=== PATIENT | female | born 1965 | race Caucasian/White ===

== ENCOUNTER 2020-12-19 11:59 | Outpatient (REF) | payer OTHER, SELFPAY ==
[2020-12-19 13:59] LABS: UPreg QC Valid YES; Urine Pregnancy NEGATIVE (NEGATIVE)
[2020-12-19 14:16] LABS: Alanine Aminotransferase 12 U/L (0-31); Albumin Level 4.3 g/dL (3.5-5.0); Alkaline Phosphatase 55 U/L (39-117); Anion Gap 12 (12-20); Aspartate Amino Transferase 19 U/L (5-31); Bilirubin Total 0.4 mg/dL (0.0-1.0); Blood Urea Nitrogen 20 mg/dL (9-16); Calcium 9.3 mg/dL (8.4-10.2); Carbon Dioxide 24 mmol/L (22-29); Chloride 104 mmol/L (96-108); Estimated Glomerular Filt Rate > 60; Glucose Random 89 mg/dL (60-115); Potassium 4.3 mmol/L (3.3-5.1); Sodium 136 mmol/L (135-145); Total Protein 7.2 g/dL (6.5-8.0)
== END 2020-12-19 12:00 | disposition home or self-care (01) ==
LOC: HO.LAB 11:59
PROVIDERS: PCP Internal Medicine; Visit Provider Internal Medicine Endocrinology, Diabetes & Metabolism
DX: E66.3 Overweight (principal); F41.9 Anxiety disorder, unspecified; Z78.0 Asymptomatic menopausal state; Z32.00 Encounter for pregnancy test, result unknown
CPT/HCPCS: 36415; 80053; 81025

== ENCOUNTER 2021-03-21 12:13 | Outpatient (REF) | payer OTHER, SELFPAY ==
[2021-03-21 13:40] LABS: Alanine Aminotransferase 15 U/L (0-31); Albumin Level 4.2 g/dL (3.5-5.0); Alkaline Phosphatase 58 U/L (39-117); Anion Gap 12 (12-20); Aspartate Amino Transferase 18 U/L (5-31); Bilirubin Total < 0.2 mg/dL (0.0-1.0); Blood Urea Nitrogen 23 mg/dL (9-16); Calcium 9.1 mg/dL (8.4-10.2); Carbon Dioxide 22 mmol/L (22-29); Chloride 106 mmol/L (96-108); Estimated Glomerular Filt Rate > 60; Glucose Random 96 mg/dL (60-115); Potassium 4.9 mmol/L (3.3-5.1); Sodium 135 mmol/L (135-145); Total Protein 7.3 g/dL (6.5-8.0)
== END 2021-03-21 12:14 | disposition home or self-care (01) ==
LOC: HO.LAB 12:13
PROVIDERS: PCP Internal Medicine; Visit Provider Internal Medicine Endocrinology, Diabetes & Metabolism
DX: E66.3 Overweight (principal); Z79.899 Other long term (current) drug therapy; Z78.0 Asymptomatic menopausal state; Z68.25 Body mass index [BMI] 25.0-25.9, adult
CPT/HCPCS: 36415; 80053

== ENCOUNTER 2021-07-17 08:12 | Outpatient (REF) | payer OTHER, SELFPAY ==
--- NOTE | ~2021-07-17 | MM_ITS ---
EXAMINATION: BONE DENSITOMETRY CLINICAL INDICATION: Osteopenia. COMPARISON: This is the patient's baseline examination. TECHNIQUE: Using a [employer] DXA System (software version: 13.1) manufactured by [employer], dual-energy x-ray absorptiometry was performed of the lumbar spine and left hip. The images are of good technical quality. Based on ISCD (International Society for Clinical Densitometry) standards of reporting, Z-scores instead of T-scores are reported in this premenopausal woman. Summary results are attached. FINDINGS: AP SPINE L1-L4: BMD 1.316 g/cm2, T-score 1.1, Z-score 2.1, Z-score within expected range for age. LEFT FEMUR, NECK: BMD 0.998 g/cm2, T-score -0.3, Z-score 0.8, Z-score within expected range for age. LEFT FEMUR, TOTAL: BMD 1.048 g/cm2, T-score 0.3, Z-score 1.1, Z-score within expected range for age. IDENTIFIED RISK FACTORS: None listed. HISTORY OF FRACTURE: None listed. MEDICATIONS: Vitamin D. MM/XR DEXA axial skeleton IMPRESSION: 1. DIAGNOSIS: Based on the lowest Z-score value of 0.8 in the femoral neck, the patient's bone density is within the expected range for age. 2. 10-YEAR FRACTURE RISK PREDICTION, FRAX: Major osteoporotic fracture (clinical spine, forearm, hip or shoulder) 5.8%. Hip fracture 0.2%. 3. Treatment Recommendations: NOF guidelines recommend consideration for treatment in postmenopausal women and men age 50 and older presenting with the following: -A hip or vertebral (clinical or morphometric) fracture. -T-score less than or equal to -2.5 at the femoral neck or spine after appropriate evaluation to exclude secondary causes. -Low bone mass at the hip or spine and a 10-year fracture probability by FRAX of greater than or equal to 3% for hip fracture or greater than or equal to 20% for major osteoporotic fracture based on the [place] adapted WHO algorithm. 4. Other Recommendations: All treatment decisions require clinical judgment and consideration of individual patient factors, including patient preferences, comorbidities, previous drug use, risk factors not captured in the FRAX model (e.g. frailty, falls, vitamin D deficiency, increased bone turnover, interval significant decline in bone density) and possible under or overestimation of fracture risk by FRAX. FUTURE SCAN RECOMMENDATION: People with diagnosed cases of osteoporosis or at high risk for fracture should have regular bone mineral density tests. For patients eligible for Medicare, routine testing is allowed once every 2 years. The testing frequency can be increased to one year for patients who have rapidly progressing disease, those who are receiving or discontinuing medical therapy to restore bone mass, or have additional risk factors.
== END 2021-07-17 08:13 | disposition home or self-care (01) ==
LOC: HO.MAMMO 08:12
PROVIDERS: PCP Internal Medicine; Visit Provider Internal Medicine
DX: Z13.820 Encounter for screening for osteoporosis (principal); M85.80 Other specified disorders of bone density and structure, unspecified site; Z79.899 Other long term (current) drug therapy
CPT/HCPCS: 77080

== ENCOUNTER 2021-07-25 12:16 | Outpatient (REF) | payer OTHER, SELFPAY ==
[2021-07-25 13:55] LABS: Alanine Aminotransferase 44 U/L (0-31); Albumin Level 4.5 g/dL (3.5-5.0); Alkaline Phosphatase 63 U/L (39-117); Anion Gap 15 (12-20); Aspartate Amino Transferase 46 U/L (5-31); Bilirubin Total 0.3 mg/dL (0.0-1.0); Blood Urea Nitrogen 19 mg/dL (9-16); Calcium 9.5 mg/dL (8.4-10.2); Carbon Dioxide 22 mmol/L (22-29); Chloride 105 mmol/L (96-108); Estimated Glomerular Filt Rate > 60; Glucose Random 88 mg/dL (60-115); Potassium 5.2 mmol/L (3.3-5.1); Sodium 137 mmol/L (135-145); Total Protein 7.5 g/dL (6.5-8.0)
== END 2021-07-25 12:17 | disposition home or self-care (01) ==
LOC: HO.LAB 12:16
PROVIDERS: PCP Internal Medicine; Visit Provider Internal Medicine
DX: E66.3 Overweight (principal); Z79.899 Other long term (current) drug therapy; Z87.891 Personal history of nicotine dependence
CPT/HCPCS: 36415; 80053

== ENCOUNTER 2021-11-21 13:33 | Outpatient (REF) | payer OTHER, SELFPAY ==
[2021-11-21 14:40] LABS: Alanine Aminotransferase 37 U/L (0-31); Albumin Level 4.5 g/dL (3.5-5.0); Alkaline Phosphatase 80 U/L (39-117); Anion Gap 15 (12-20); Aspartate Amino Transferase 36 U/L (5-31); Bilirubin Total 0.2 mg/dL (0.0-1.0); Blood Urea Nitrogen 17 mg/dL (9-16); Calcium 9.9 mg/dL (8.4-10.2); Carbon Dioxide 25 mmol/L (22-29); Chloride 101 mmol/L (96-108); Estimated Glomerular Filt Rate > 60; Glucose Random 98 mg/dL (60-115); Potassium 4.6 mmol/L (3.3-5.1); Sodium 136 mmol/L (135-145); Total Protein 7.9 g/dL (6.5-8.0)
== END 2021-11-21 13:34 | disposition home or self-care (01) ==
LOC: HO.LAB 13:33
PROVIDERS: PCP Internal Medicine; Visit Provider Internal Medicine
DX: E66.3 Overweight (principal)
CPT/HCPCS: 36415; 80053

== ENCOUNTER → 2021-12-30 14:22 | Outpatient (BNVA) | payer OTHER, SELFPAY | PROVIDERS: PCP Internal Medicine; Visit Provider Internal Medicine | DX: E66.3 Overweight (principal) | CPT/HCPCS: 99212 ==

== ENCOUNTER 2023-05-14 17:36 | Inpatient (IN) | payer OTHER, SELFPAY ==
--- NOTE | ~2023-05-14 | CT_ITS ---
EXAMINATION: CT ABDOMEN AND PELVIS WITHOUT CONTRAST CLINICAL INFORMATION: Left flank pain COMPARISON: None available. TECHNIQUE: Multidetector volumetric imaging was performed from the superior aspect of the liver through the pubic symphysis. Sagittal and coronal reformatted images were obtained on the technologist's workstation. This CT examination was performed using dose optimization techniques as appropriate, variously including the following: *Automated exposure control *Adjustment of mA and/or kV according to patient size (this includes techniques or standardized protocols for targeted exams where dose is matched to indication/reason for exam; i.e. extremities or head) *Use of iterative reconstruction technique DLP: 447 mGy-cm FINDINGS: LUNG BASES: The visualized lung bases are unremarkable. LIVER, GALLBLADDER, AND BILIARY TREE: The liver is normal in size, shape, and attenuation. No focal hepatic lesion or biliary ductal dilatation is present. The gallbladder is unremarkable with no evidence of radiopaque gallstones, gallbladder wall thickening, or obvious pericholecystic inflammatory changes. PANCREAS: Unremarkable. SPLEEN: Unremarkable. ADRENAL GLANDS: Unremarkable. KIDNEYS AND URETERS: The kidneys are normal in size, shape, and attenuation. No hydronephrosis, hydroureter, or calculi seen. No perinephric stranding. BLADDER: Unremarkable. GASTROINTESTINAL TRACT: The appendix is edematous and thickened to a diameter 1 cm with surrounding edema in the mesentery. This consistent with appendicitis in appropriate clinical setting. There is fluid in the cul-de-sac. No focal abscess. There is no evidence for perforation. No bowel obstruction. No diverticula. Small to moderate volume of scattered stool in the colon. Small bowel loops are normal. Stomach is normal. There is a small hiatal hernia. ABDOMINAL WALL: Small fat-containing umbilical hernia LYMPH NODES: Normal. VASCULAR: Unremarkable. PELVIC VISCERA: Unremarkable. OSSEOUS STRUCTURES: Multilevel degenerative spondylosis spine. CT/CT abdomen pelvis wo IV con IMPRESSION: Abnormal dilated edematous appendix with surrounding edema in the mesentery and fluid in the cul-de-sac. Findings suspicious for appendicitis. Fleischner guidelines were followed.
[2023-05-14 17:50] VITALS: BP 145/80; PULSE 84; O2SAT 98
--- NOTE | 2023-05-14 17:51 | ED.GENADULT ---
HPI - General Adult General Chief complaint: Abdominal Pain Stated complaint: abdominal pain Related Data Home Medications Medication Instructions Recorded Confirmed bupropion HCl 150 mg 24 hr tablet, 450 mg PO DAILY 03/21/21 12/30/21 extended release cholecalciferol (vitamin D3) 50 50 mcg PO DAILY 03/21/21 12/30/21 mcg (2,000 unit) tablet diclofenac sodium 1 % topical gel 1 - 2 g topical TID PRN pain 03/21/21 12/30/21 lorazepam 1 mg tablet 1 mg PO QID PRN 03/21/21 12/30/21 simvastatin 10 mg tablet 10 mg PO BEDTIME 03/21/21 12/30/21 zolpidem 10 mg tablet 10 mg PO BEDTIME PRN 03/21/21 12/30/21 Previous Rx's Medication Instructions Recorded phentermine 3.75 mg-topiramate ER 1 cap PO DAILY 14 days #14 caps 12/30/21 23 mg capsule,ext.release 24hr mphas Allergies Allergy/AdvReac Type Severity Reaction Status Date / Time No Known Allergies Allergy Verified 12/30/21 15:00 [facility] Past Medical History Medical History Overweight (BMI 25.0-29.9) Surgical History History of ear surgery Hx of myomectomy Family History Family History Father Heart disease Mother Lung cancer Social History Social History Alcohol intake: current Alcohol intake frequency: does not drink Patient Tobacco Use Status: Former Tobacco user Tobacco use type: Cigarette Physical Exam ED Vital Signs: Vital Signs - 24 hr 05/14/23 17:53 Temperature 97.7 F Pulse Rate 87 Respiratory Rate 18 Blood Pressure 130/84 Pulse Oximetry 95 Oxygen Delivery Method Room Air BMI result Body Mass Index 24.9 Course Course Course Narrative: This is an RME: Additional HPI, ROS, PE not included below will be deferred to primary provider. This is a 58-year-old female presenting to emergency department via EMS for evaluation of severe abdominal pain and nausea x 2 hours. Patient reports that she had chicken last night and believes that the chicken is making her sick. She is endorsing back pain. Positive left CVA tenderness on exam. Vital signs stable. Patient appears uncomfortable. Abdomen is diffusely tender examination. Plan: Labs, UA, EKG. Discharge Plan Discharge Prescriptions: No Action bupropion HCl 150 mg tablet extended release 24 hr 450 mg PO DAILY simvastatin 10 mg tablet 10 mg PO BEDTIME zolpidem 10 mg tablet 10 mg PO BEDTIME PRN lorazepam 1 mg tablet 1 mg PO QID PRN diclofenac sodium 1 % gel 1 - 2 g topical TID PRN (Reason: pain) cholecalciferol (vitamin D3) 50 mcg (2,000 unit) tablet 50 mcg PO DAILY phentermine-topiramate 3.75-23 mg capsule, ER multiphase 24 hr 1 cap PO DAILY 14 Days Qty: 14 0RF
[2023-05-14 17:53] VITALS: BP 130/84; PULSE 87; RESP 18; TEMP 36.5; O2SAT 95; BMI 24.9
--- NOTE | 2023-05-14 18:00 | ECG_ITS ---
Test Reason : epigastric pain Blood Pressure : / mmHG Vent. Rate : 086 BPM Atrial Rate : 086 BPM P-R Int : 172 ms QRS Dur : 068 ms QT Int : 376 ms P-R-T Axes : 075 -75 065 degrees QTc Int : 449 ms Normal sinus rhythm Left axis deviation Low voltage QRS Inferior infarct , age undetermined Possible Anterolateral infarct , age undetermined Abnormal ECG When compared with ECG of 29-MAY-2015 13:43, Vent. rate has increased BY 29 BPM QRS axis Shifted left Inferior infarct is now Present Referred By: Anu Polk Electronically Signed By:Olu Bernabe
[2023-05-14 18:44] LABS: MANUAL DIFF FLAG NO
[2023-05-14 18:45] LABS: Basophils Percent Auto 0.3 % (0-2); Eosinophils Absolute Auto 0.1 X10*3/uL (0.0-0.4); Eosinophils Percent Auto 0.5 % (0-4); Hematocrit 39.6 % (37.0-47.0); Hemoglobin 12.9 g/dl (12.0-16.0); Imm Gran Abs Auto 0.05 X10*3/uL (0.00-0.03); Imm Gran Pct Auto 0.4 % (0.0-0.4); Lymphocytes Absolute Auto 2.2 X10*3/uL (1.2-4.9); Mean Corpuscular HGB Conc 32.6 g/dl (31.0-35.0); Mean Corpuscular Hemoglobin 32.5 pg (27.0-33.0); Mean Corpuscular Volume 99.7 fL (80.0-98.0); Mean Platelet Volume 9.6 fL (9.4-12.3); Monocytes Absolute Auto 0.4 X10*3/uL (0.1-1.2); Monocytes Percent Auto 3.1 % (2-11); Neutrophils Absolute Auto 10.1 x10*3/uL (2.0-8.3); Neutrophils Percent Auto 78.7 % (45-73); Platelet Count 387 X10*3/uL (160-400); Red Blood Count 3.97 X10*6/uL (4.20-5.50); Red Cell Distribution Width 14.6 % (11.0-16.0); White Blood Count 12.8 X10*3/uL (4.8-10.8)
[2023-05-14 19:01] LABS: Alanine Aminotransferase 24 U/L (0-31); Albumin Level 4.3 g/dL (3.5-5.0); Alkaline Phosphatase 75 U/L (39-117); Anion Gap 15 (12-20); Aspartate Amino Transferase 26 U/L (5-31); Bilirubin Direct 0.1 mg/dL (0.0-0.5); Bilirubin Total 0.3 mg/dL (0.0-1.0); Blood Urea Nitrogen 19 mg/dL (9-16); Calcium 9.9 mg/dL (8.4-10.2); Carbon Dioxide 22 mmol/L (22-29); Chloride 103 mmol/L (96-108); Creatinine Clr Calc Pharmacy 67.2; Estimated Glomerular Filt Rate > 60; Glucose Random 129 mg/dL (60-115); Potassium 4.3 mmol/L (3.3-5.1); Sodium 136 mmol/L (135-145); Total Protein 7.5 g/dL (6.5-8.0)
[2023-05-14 19:05] LABS: Appearance Urine Cloudy; Color Urine Yellow; Glucose Urine UA Negative (Negative); Leukocyte Esterase Urine Negative (Negative); Nitrite Urine Negative (Negative); Specific Gravity - Urine >= 1.030 (1.005-1.025); Urine Blood Negative (Negative); Urine Ketones 15 mg/dL (Negative); Urine Protein Trace mg/dL (Neg-Trace)
[2023-05-14 19:15] LABS: Troponin-I High Sensitivity < 2.7 ng/L (<3.5-17.0)
--- NOTE | 2023-05-14 19:29 | ED_ITS ---
HPI - Abdominal Pain General Chief Complaint: Abdominal Pain Stated Complaint: abdominal pain Time Seen by Provider: 05/14/23 19:10 History of Present Illness HPI narrative: Patient is a 58-year-old female presents today with having abdominal pain is been ongoing since this morning. Is worse over the lower abdomen. Associated with nausea. Worsen with movement. Patient from home. No fever no chills. Vomiting mostly food. No previous history of abdominal surgery in the past for no allergies. Not on blood thinners. Related Data Home Medications Medication Instructions Recorded Confirmed bupropion HCl 150 mg 24 hr tablet, 450 mg PO DAILY 03/21/21 12/30/21 extended release cholecalciferol (vitamin D3) 50 50 mcg PO DAILY 03/21/21 12/30/21 mcg (2,000 unit) tablet diclofenac sodium 1 % topical gel 1 - 2 g topical TID PRN pain 03/21/21 12/30/21 lorazepam 1 mg tablet 1 mg PO QID PRN 03/21/21 12/30/21 simvastatin 10 mg tablet 10 mg PO BEDTIME 03/21/21 12/30/21 zolpidem 10 mg tablet 10 mg PO BEDTIME PRN 03/21/21 12/30/21 Previous Rx's Medication Instructions Recorded phentermine 3.75 mg-topiramate ER 1 cap PO DAILY 14 days #14 caps 12/30/21 23 mg capsule,ext.release 24hr mphas Allergies Allergy/AdvReac Type Severity Reaction Status Date / Time No Known Allergies Allergy Verified 12/30/21 15:00 Review of Systems Review of Systems Positive abdominal pain Nausea vomiting Yes all other systems are reviewed and are negative PMFSH Past Medical History Medical History Overweight (BMI 25.0-29.9) Surgical History History of ear surgery Hx of myomectomy Family History Family History Father Heart disease Mother Lung cancer Social History Social History Alcohol intake: current Alcohol intake frequency: does not drink Patient Tobacco Use Status: Former Tobacco user Tobacco use type: Cigarette Advance Directives: No Advance Directives Information Provided: Yes Physical Exam ED Vital Signs: Vital Signs - 24 hr 05/14/23 17:53 Temperature 97.7 F Pulse Rate 87 Respiratory Rate 18 Blood Pressure 130/84 Pulse Oximetry 95 Oxygen Delivery Method Room Air BMI result Body Mass Index 24.9 Appearance: Alert. Oriented X3. No acute distress. Eyes: Pupils equal, round and reactive to light. ENT: Pharynx normal. Neck: Normal inspection. Neck supple. No lymph nodes noted. No crepitus CVS: Normal heart rate and rhythm. Pulses normal. Normal S1 and S2 Respiratory: No respiratory distress. Breath sounds normal. No Wheezing. No rales Abdomen: Positive right lower quadrant tenderness No rigidity. No distention. good BS x4 Skin: Skin warm and dry. Normal skin color. Normal skin turgor. Extremities: No lower extremity edema. Neurovascular intact to all extremities. No Lacerations. No Rash Neuro: Oriented X 3. No motor deficit. No sensory deficit. Moving all extermities. No slurred speech Medical Decision Making Medical Decision Making [facility] Narrative: Patient had abdominal pain. White count was 12. CT scan of the abdomen pelvis consistent with appendicitis. Antibiotic was started. Pain medication given. Zofran for nausea. IV fluids. Patient's case discussed with Dr. Boone from surgery. Will take patient to the OR. Differential Diagnosis Differential Diagnoses: The differential diagnosis associated with the presentation includes Appendicitis, kidney stone, obstruction, abscess, perforation Admission/Observation Consideration of admission/observation: Escalation of care including admission/observation considered Patient to be admitted to the OR Consult Healthcare Provider Surgery Dr. Boone Lab Data [facility] Lab Attestation statement: I reviewed the patient's lab results. 05/14/23 18:35 05/14/23 18:35 Labs: Lab Results 05/14/23 05/14/23 05/14/23 Range/Units 18:35 18:35 18:35 WBC 12.8 H (4.8-10.8) X10*3/uL RBC 3.97 L (4.20-5.50) X10*6/uL Hgb 12.9 (12.0-16.0) g/dl Hct 39.6 (37.0-47.0) % MCV 99.7 H (80.0-98.0) fL MCH 32.5 (27.0-33.0) pg MCHC 32.6 (31.0-35.0) g/dl RDW 14.6 (11.0-16.0) % Plt Count 387 (160-400) X10*3/uL MPV 9.6 (9.4-12.3) fL Immature Gran % (Auto) 0.4 (0.0-0.4) % Neut % (Auto) 78.7 H (45-73) % Lymph % (Auto) 17.0 L (20-40) % [place] % (Auto) 3.1 (2-11) % Eos % (Auto) 0.5 (0-4) % Baso % (Auto) 0.3 (0-2) % Lymph # (Auto) 2.2 (1.2-4.9) X10*3/uL [place] # (Auto) 0.4 (0.1-1.2) X10*3/uL Eos # (Auto) 0.1 (0.0-0.4) X10*3/uL Baso # (Auto) 0.0 (0.0-0.2) X10*3/uL Abs Immat Gran (auto) 0.05 H (0.00-0.03) X10*3/uL Absolute Neuts (auto) 10.1 H (2.0-8.3) x10*3/uL Absolute Nucleated RBC 0.000 (0.0-0.012) X10*3/uL Nucleated RBC % (auto) 0.0 (0.0-0.2) /100WBC Sodium 136 (135-145) mmol/L Potassium 4.3 (3.3-5.1) mmol/L Chloride 103 (96-108) mmol/L Carbon Dioxide 22 (22-29) mmol/L Anion Gap 15 (12-20) BUN 19 H (9-16) mg/dL Creatinine 0.84 (0.5-1.4) mg/dL Estim Creat Clear Calc 67.2 Estimated GFR > 60 Random Glucose 129 H (60-115) mg/dL Calcium 9.9 (8.4-10.2) mg/dL Total Bilirubin 0.3 (0.0-1.0) mg/dL Direct Bilirubin 0.1 (0.0-0.5) mg/dL AST 26 (5-31) U/L ALT 24 (0-31) U/L Alkaline Phosphatase 75 (39-117) U/L Troponin I High Sens < 2.7 (<3.5-17.0) ng/L Total Protein 7.5 (6.5-8.0) g/dL Albumin 4.3 (3.5-5.0) g/dL Urine Color Urine Appearance Urine pH (5.0-9.0) Ur Specific [place] (1.005-1.025) Urine Protein (Neg-Trace) mg/dL Urine Glucose (UA) (Negative) mg/dL Urine Ketones (Negative) mg/dL Urine Blood (Negative) Urine Nitrite (Negative) Ur Leukocyte Esterase (Negative) 05/14/23 Range/Units 18:35 WBC (4.8-10.8) X10*3/uL RBC (4.20-5.50) X10*6/uL Hgb (12.0-16.0) g/dl Hct (37.0-47.0) % MCV (80.0-98.0) fL MCH (27.0-33.0) pg MCHC (31.0-35.0) g/dl RDW (11.0-16.0) % Plt Count (160-400) X10*3/uL MPV (9.4-12.3) fL Immature Gran % (Auto) (0.0-0.4) % Neut % (Auto) (45-73) % Lymph % (Auto) (20-40) % [place] % (Auto) (2-11) % Eos % (Auto) (0-4) % Baso % (Auto) (0-2) % Lymph # (Auto) (1.2-4.9) X10*3/uL [place] # (Auto) (0.1-1.2) X10*3/uL Eos # (Auto) (0.0-0.4) X10*3/uL Baso # (Auto) (0.0-0.2) X10*3/uL Abs Immat Gran (auto) (0.00-0.03) X10*3/uL Absolute Neuts (auto) (2.0-8.3) x10*3/uL Absolute Nucleated RBC (0.0-0.012) X10*3/uL Nucleated RBC % (auto) (0.0-0.2) /100WBC Sodium (135-145) mmol/L Potassium (3.3-5.1) mmol/L Chloride (96-108) mmol/L Carbon Dioxide (22-29) mmol/L Anion Gap (12-20) BUN (9-16) mg/dL Creatinine (0.5-1.4) mg/dL Estim Creat Clear Calc Estimated GFR Random Glucose (60-115) mg/dL Calcium (8.4-10.2) mg/dL Total Bilirubin (0.0-1.0) mg/dL Direct Bilirubin (0.0-0.5) mg/dL AST (5-31) U/L ALT (0-31) U/L Alkaline Phosphatase (39-117) U/L Troponin I High Sens (<3.5-17.0) ng/L Total Protein (6.5-8.0) g/dL Albumin (3.5-5.0) g/dL Urine Color Yellow Urine Appearance Cloudy Urine pH 6.0 (5.0-9.0) Ur Specific [place] >= 1.030 H (1.005-1.025) Urine Protein Trace (Neg-Trace) mg/dL Urine Glucose (UA) Negative (Negative) mg/dL Urine Ketones 15 (Negative) mg/dL Urine Blood Negative (Negative) Urine Nitrite Negative (Negative) Ur Leukocyte Esterase Negative (Negative) Independent Interpretation I performed an independent interpretation of an: CT Scan Interpretation: No gross obstruction positive appendicitis Radiology Impression Discussion of test interpretation with radiology: I have reviewed the radiologist's reading. Chronic Conditions History of high cholesterol, anxiety Discharge Plan Discharge Clinical Impression: Appendicitis Patient Disposition: Admitted As Inpatient Prescriptions: No Action bupropion HCl 150 mg tablet extended release 24 hr 450 mg PO DAILY simvastatin 10 mg tablet 10 mg PO BEDTIME zolpidem 10 mg tablet 10 mg PO BEDTIME PRN lorazepam 1 mg tablet 1 mg PO QID PRN diclofenac sodium 1 % gel 1 - 2 g topical TID PRN (Reason: pain) cholecalciferol (vitamin D3) 50 mcg (2,000 unit) tablet 50 mcg PO DAILY phentermine-topiramate 3.75-23 mg capsule, ER multiphase 24 hr 1 cap PO DAILY 14 Days Qty: 14 0RF
[2023-05-14] MEDS: HYDROmorphone HCl 1 MG/ML SYRINGE IVPUSH (19:41)
[2023-05-14] MEDS: cefTRIAXone sodium 2 GM in 0.9 % Sodium Chloride 50 ML IV (19:41)
[2023-05-14] MEDS: ondansetron HCL 4 MG/2 ML VIAL IVPUSH (19:41)
[2023-05-14] MEDS: 0.9 % Sodium Chloride 1,000 ML 999 ML IV (19:41)
--- NOTE | 2023-05-14 19:50 | PM.HPGS ---
History of Present Illness History of Present Illness Date of Service: 05/14/23 Chief complaint: high blood sugar, per ems Narrative: Margie Spivey is a 58 year old female who presents with approximately 1 day history of progressive worsening lower abdominal pain. Because of progression of symptoms, she presented emergency department which workup and exam and CT scan were consistent with acute appendicitis. Chart was reviewed and patient evaluated. [facility] Past Medical History Medical History Overweight (BMI 25.0-29.9) Family History Family History Father Heart disease Mother Lung cancer Surgical History Surgical History History of ear surgery Hx of myomectomy Social History Social History Alcohol intake: current Alcohol intake frequency: does not drink Patient Tobacco Use Status: Former Tobacco user Tobacco use type: Cigarette Advance Directives: No Advance Directives Information Provided: Yes Meds Allergies Allergy/AdvReac Type Severity Reaction Status Date / Time No Known Allergies Allergy Verified 12/30/21 15:00 Active Medications: Current Medications Ceftriaxone Sodium 2 gm/ (Sodium Chloride) 50 mls @ 100 mls/hr IV ONCE ONE Stop: 05/14/23 19:57 Last Admin: 05/14/23 19:41 Dose: 100 mls/hr Sodium Chloride (Ns) 1,000 mls @ 999 mls/hr IV .Q1H1M DIAMOND Stop: 05/14/23 20:30 Last Admin: 05/14/23 19:41 Dose: 999 mls/hr Home Medications Medication Instructions Recorded Confirmed Last Taken Type bupropion HCl 150 mg 24 hr tablet, 450 mg PO DAILY 03/21/21 12/30/21 Unknown History extended release cholecalciferol (vitamin D3) 50 50 mcg PO DAILY 03/21/21 12/30/21 Unknown History mcg (2,000 unit) tablet diclofenac sodium 1 % topical gel 1 - 2 g topical TID PRN pain 03/21/21 12/30/21 Unknown History lorazepam 1 mg tablet 1 mg PO QID PRN 03/21/21 12/30/21 Unknown History simvastatin 10 mg tablet 10 mg PO BEDTIME 03/21/21 12/30/21 Unknown History zolpidem 10 mg tablet 10 mg PO BEDTIME PRN 03/21/21 12/30/21 Unknown History Physical Exam Vital Signs: Vital Signs: Last Vital Signs Temp 97.7 F 05/14/23 17:53 Pulse 87 05/14/23 17:53 Resp 18 05/14/23 17:53 BP 130/84 05/14/23 17:53 Pulse Ox 95 05/14/23 17:53 O2 Del Method Room Air 05/14/23 17:53 BMI result Body Mass Index 24.9 Const: Other: Very anxious apprehensive female. Chest: Other: Chest breath sounds bilaterally, HS 1 in 2 GI: Other: Abdomen, marked right lower quadrant localized rebound tenderness. Results Results Labs: Short CBC 05/14/23 Range/Units 18:35 WBC 12.8 H (4.8-10.8) X10*3/uL Hgb 12.9 (12.0-16.0) g/dl Hct 39.6 (37.0-47.0) % Plt Count 387 (160-400) X10*3/uL BMP 05/14/23 18:35 Sodium 136 Potassium 4.3 Chloride 103 Carbon Dioxide 22 BUN 19 H Creatinine 0.84 Calcium 9.9 Liver Function 05/14/23 Range/Units 18:35 Total Bilirubin 0.3 (0.0-1.0) mg/dL Direct Bilirubin 0.1 (0.0-0.5) mg/dL AST 26 (5-31) U/L ALT 24 (0-31) U/L Alkaline Phosphatase 75 (39-117) U/L Albumin 4.3 (3.5-5.0) g/dL Urine 05/14/23 Range/Units 18:35 Urine Color Yellow Urine Appearance Cloudy Urine pH 6.0 (5.0-9.0) Ur Specific [place] >= 1.030 H (1.005-1.025) Urine Protein Trace (Neg-Trace) mg/dL Urine Glucose (UA) Negative (Negative) mg/dL Assessment and Plan (1) Appendicitis: Status: Acute Plan I discussed the patient the risks, benefits, alternatives of laparoscopic possible open appendectomy which included but not limited to bleeding, infection, numbness, pain, scarring, bowel injury or leak bladder injury or leak and the patient wishes to proceed. All questions were answered. Arrangements will be made for the case to be done this evening as an add on. Time Spent With Patient Time: Total time managing care of this patient today ____ minutes. Quality Stroke Does the patient have a stroke diagnosis?: No VTE Prior VTE?: No VTE Risk Level:: Surgical - low VTE Device Contraindication: Treatment Not Indicated VTE Drug Contraindication: Treatment Not Indicated Procedures Date of Service Date of Service: 05/14/23
--- NOTE | 2023-05-14 21:13 | PHA.MEDREC ---
Pharmacy Consult ? Medication Reconciliation Pharmacy has completed the medication reconciliation. Patient reported medications. Patient shes only uses her bupropion every once in a while Annita Avila, ShanthiD
--- NOTE | 2023-05-14 21:26 | PC.NURSE ---
Pt ambulated to the bathroom independently. Pt is much more comfortable at this time.
[2023-05-14] MEDS: HYDROmorphone HCl 0.5 MG/0.5 ML SYRINGE IVPUSH (22:18)
--- NOTE | 2023-05-14 22:43 | PC.NURSE ---
Call JADE ROSS if pt goes to surgery [facility]. [phone]
--- NOTE | 2023-05-14 23:05 | HO.ANESPROP2 ---
[facility] Active Problems Active Problems: All Active Problems (Updated 05/14/23 @ 19:34 by Brianne Rodríguez MD) Appendicitis (Acute) Overweight (BMI 25.0-29.9) (Acute) Past Medical History Medical History Overweight (BMI 25.0-29.9) Functional capacity: independent ambulation Patient : No Family History Family History Father Heart disease Mother Lung cancer Family history of problems with anesthesia: No Surgical History Surgical History History of ear surgery Hx of myomectomy Social History Social History Alcohol intake: current Alcohol intake frequency: does not drink Patient Tobacco Use Status: Former Tobacco user Tobacco use type: Cigarette Advance Directives: No Advance Directives Information Provided: Yes Patient : No Meds Allergies Allergy/AdvReac Type Severity Reaction Status Date / Time No Known Allergies Allergy Verified 12/30/21 15:00 Home Medications Medication Instructions Recorded Confirmed Last Taken Type bupropion HCl 150 mg 24 hr tablet, 450 mg PO DAILY PRN anxious 03/21/21 05/14/23 Unknown History extended release cholecalciferol (vitamin D3) 50 50 mcg PO DAILY 03/21/21 05/14/23 Unknown History mcg (2,000 unit) tablet diclofenac sodium 1 % topical gel 1 - 2 g topical TID PRN pain 03/21/21 05/14/23 Unknown History lorazepam 1 mg tablet 1 mg PO TID PRN Anxiety 03/21/21 05/14/23 Unknown History ascorbic acid (vitamin C) 500 mg 500 mg PO DAILY 05/14/23 05/14/23 Unknown History tablet biotin 1 tab PO DAILY 05/14/23 05/14/23 Unknown History cyanocobalamin (vitamin B-12) 1,000 mcg PO DAILY 05/14/23 05/14/23 Unknown History 1,000 mcg tablet loratadine 10 mg tablet 10 mg PO DAILY 05/14/23 05/14/23 Unknown History magnesium 200 mg tablet 400 mg PO DAILY 05/14/23 05/14/23 Unknown History omeprazole 40 mg capsule,delayed 40 mg PO QAM 05/14/23 05/14/23 Unknown History release simvastatin 40 mg tablet 40 mg PO DAILY 05/14/23 05/14/23 Unknown History vitamin E 268 mg (400 unit) capsule 268 mg PO DAILY 05/14/23 05/14/23 Unknown History zolpidem 5 mg tablet 5 mg PO BEDTIME 05/14/23 05/14/23 Unknown History Exam Exam Date and Time: May 14, [id number] Height,Weight and Vital Signs: Height 5 ft 4 in Weight 65.771 kg Last Vital Signs Temp 97.7 F 05/14/23 17:53 Pulse 87 05/14/23 17:53 Resp 18 05/14/23 17:53 BP 130/84 05/14/23 17:53 Pulse Ox 95 05/14/23 17:53 O2 Del Method Room Air 05/14/23 17:53 Pertinent Lab Results Pertinent Lab Results: Laboratory Tests 05/14/23 05/14/23 05/14/23 18:35 18:35 18:35 WBC 12.8 H RBC 3.97 L Hgb 12.9 Hct 39.6 MCV 99.7 H MCH 32.5 MCHC 32.6 RDW 14.6 Plt Count 387 MPV 9.6 Immature Gran % (Auto) 0.4 Neut % (Auto) 78.7 H Lymph % (Auto) 17.0 L [place] % (Auto) 3.1 Eos % (Auto) 0.5 Baso % (Auto) 0.3 Lymph # (Auto) 2.2 [place] # (Auto) 0.4 Eos # (Auto) 0.1 Baso # (Auto) 0.0 Abs Immat Gran (auto) 0.05 H Absolute Neuts (auto) 10.1 H Absolute Nucleated RBC 0.000 Nucleated RBC % (auto) 0.0 Sodium 136 Potassium 4.3 Chloride 103 Carbon Dioxide 22 Anion Gap 15 BUN 19 H Creatinine 0.84 Estim Creat Clear Calc 67.2 Estimated GFR > 60 Random Glucose 129 H Calcium 9.9 Total Bilirubin 0.3 Direct Bilirubin 0.1 AST 26 ALT 24 Alkaline Phosphatase 75 Troponin I High Sens < 2.7 Total Protein 7.5 Albumin 4.3 Urine Color Urine Appearance Urine pH Ur Specific [place] Urine Protein Urine Glucose (UA) Urine Ketones Urine Blood Urine Nitrite Ur Leukocyte Esterase 08/10/23 18:35 WBC RBC Hgb Hct MCV MCH MCHC RDW Plt Count MPV Immature Gran % (Auto) Neut % (Auto) Lymph % (Auto) [place] % (Auto) Eos % (Auto) Baso % (Auto) Lymph # (Auto) [place] # (Auto) Eos # (Auto) Baso # (Auto) Abs Immat Gran (auto) Absolute Neuts (auto) Absolute Nucleated RBC Nucleated RBC % (auto) Sodium Potassium Chloride Carbon Dioxide Anion Gap BUN Creatinine Estim Creat Clear Calc Estimated GFR Random Glucose Calcium Total Bilirubin Direct Bilirubin AST ALT Alkaline Phosphatase Troponin I High Sens Total Protein Albumin Urine Color Yellow Urine Appearance Cloudy Urine pH 6.0 Ur Specific [place] >= 1.030 H Urine Protein Trace Urine Glucose (UA) Negative Urine Ketones 15 Urine Blood Negative Urine Nitrite Negative Ur Leukocyte Esterase Negative Airway Mallampati Class: II TM Dist: >3cm Neck ROM: Full Heart: RRR Lungs: CTA Assessment and Plan Assessment Anesthesia Assessment: Anesthesia Plan Discussed Final Anesthetic Review Family History of Problems with Anesthesia: No NPO: Yes ASA Class: II and Emergency Patient Risk: Low Procedure Risk: Intermediate Anesthetic Plan Anesthetic Plan: GA Disposition: Standard PACU
[2023-05-14 23:09] VITALS: BP 154/86; PULSE 112; RESP 20; TEMP 36.7; O2SAT 95
--- NOTE | 2023-05-14 23:13 | PC.NURSE ---
Called [facility] and left a voicemail informing that pt went to OR.
[2023-05-15] VITALS (10 sets, daily range): BP systolic 112–164; BP diastolic 68–92; PULSE 98–117; RESP 14–20; TEMP 36–36.8; O2SAT 93–96
--- NOTE | 2023-05-15 00:47 | W.PM.OPN ---
Operative Note Operative Note Date of Service: 05/15/23 Narrative: Preoperative diagnosis: [] Acute appendicitis, incarcerated umbilical hernia Postop diagnosis: [] Perforated appendicitis, incarcerated umbilical hernia Procedure [] laparoscopic appendectomy, repair of incarcerated umbilical hernia primarily Surgeon: [] [employer] Lender: [] Type of Anesthesia: [] General Indication for surgery: [] Acute suppurative peritonitis secondary to perforated appendicitis. Incidental finding of a incarcerated umbilical hernia with omental contents which was used as the camera port. Defect measured approximately 2 cm. Findings: [] the patient was brought to the operating room, placed on the operative table in supine position, after adequate level of general anesthesia was induced, the patient's abdomen was prepped and draped in usual sterile fashion after Alcantara catheter was placed. A supraumbilical curvilinear incision was made for the umbilical port which was also the site of the incarcerated umbilical hernia. This carried down through skin, subcutaneous tissue, with hernia sac was identified and from the posterior aspect of the umbilicus. Dissection was carried down the fascia was sac was opened and incarcerated omental contents were from the sac and amputated using Bovie. Sac was also amputated. Ibrahim technique was used to insufflate the abdominal cavity to 15 mm of CO2. Lower midline and suprapubic ports were placed under direct laparoscopic view, and the patient placed in Trendelenburg, tilted to the left. Findings were as noted above. Phlegmonous appendix was identified brought onto the field. Its mesentery was sequentially taken down using double firing of ligature device. Appendix was then transected at the cecal base using endoscopic DAVID stapler. Specimen was placed in an Endo-Catch bag, and retrieved t through the umbilical port. The abdominal cavity was very copiously irrigated and secured hemostasis. All ports were removed under direct laparoscopic view. Wounds closed in the following manner; umbilical wound which was the site of the umbilical hernia was closed primarily using interrupted 0 Vicryl sutures. Skin wounds were closed using subcuticular 4-0 Vicryl sutures followed by Steri-Strips and sterile dressings. Wounds were infiltrated 0.5% Marcaine at completion. Sponge, needle, and instrument counts reported correct. Patient tolerated the procedure well and emerged anesthesia stable condition. EBL minimal
[2023-05-15] MEDS: Acetaminophen 1,000 MG/100 ML PIGGYBACK 400 MG IV (01:02)
[2023-05-15] MEDS: 0.9 % Sodium Chloride Flush 3 ML SYRINGE IVFLUSH (01:41)
[2023-05-15] MEDS: Dextrose 5 % and 0.9 % NaCl 1,000 ML 100 ML IVCONT ×3 (01:41→21:44)
[2023-05-15] MEDS: Temazepam 15 MG CAPSULE PO (02:35)
[2023-05-15] MEDS: HYDROmorphone HCl 1 MG/ML SYRINGE 0.5 MG IVPUSH ×6 (02:35→22:38)
[2023-05-15] MEDS: cefTRIAXone sodium 1 GM in 0.9 % Sodium Chloride 50 ML IV ×2 (06:29→18:44)
--- NOTE | 2023-05-15 08:15 | PM.PNGS ---
Subjective Subjective Date of Service: 05/15/23 Interval history: Feels much better this morning but very tired. Was not able to sleep. Wants to eat and go home. Physical Exam Vital Signs: Vital Signs: Last Vital Signs Temp 98.1 F 05/15/23 07:12 Pulse 101 H 05/15/23 07:12 Resp 18 05/15/23 07:12 BP 136/81 05/15/23 07:12 Pulse Ox 93 05/15/23 07:12 O2 Del Method Room Air 05/15/23 07:12 BMI result Body Mass Index 24.9 Const: General: comfortable, no acute distress and alert Orientation/consciousness: patient oriented x3 Resp: Effort & Inspection: normal respiratory effort GI: Inspection: No distended and Yes incision (dressings c/d/i) Palpation (GI): Soft to palpation, Tenderness to palpation present (GI) (mild incisional), no guarding and not rigid Percussion: Yes normal to percussion Skin: General skin exam: no rashes or lesions noted Neuro: General: patient oriented x3 and moves all extremities Objective Data Active Medications Acetaminophen (Acetaminophen 325 Mg Tablet) 650 mg PO Q6H PRN PRN Reason: Pain, Mild (Pain Scale 1-3) Al Hydroxide/Mg Hydroxide (Magnesium Hydrox/Alum Hydrox 30 Ml Oral.Susp) 30 ml PO Q4H PRN PRN Reason: Heartburn/Nausea Atorvastatin Calcium (Atorvastatin Calcium 20 Mg Tablet) 20 mg PO DAILY [facility] Bupropion HCl (Bupropion Hcl Xl 150 Mg Tab.Er.24h) 450 mg PO DAILY [facility] Docusate Sodium (Docusate Sodium 100 Mg Capsule) 100 mg PO DAILY PRN PRN Reason: Constipation Fentanyl (Fentanyl Citrate/Pf 100 Mcg/2 Ml Vial) 25 mcg IVPUSH Q5M PRN; Protocol PRN Reason: Pain, Moderate(Pain Scale 4-6) Hydromorphone HCl (Hydromorphone Hcl 1 Mg/Ml Syringe) 0.5 mg IVPUSH Q4H PRN; Protocol PRN Reason: Pain, Severe (Pain Scale 7-10) Last Admin: 05/15/23 06:29 Dose: 0.5 mg Documented By: HANNAH Dextrose/Sodium Chloride (D5ns) 1,000 mls @ 100 mls/hr IVCONT .Q10H [facility] Last Admin: 05/15/23 01:41 Dose: 100 mls/hr Documented By: HANNAH Ceftriaxone Sodium 1 gm/ (Sodium Chloride) 50 mls @ 100 mls/hr IV Q12H [facility] Last Infusion: 05/15/23 07:03 Dose: 0 mls/hr Documented By: AC Loratadine (Loratadine 10 Mg Tablet) 10 mg PO DAILY [facility] Lorazepam (Lorazepam 1 Mg Tablet) 1 mg PO TID PRN PRN Reason: Anxiety Magnesium Hydroxide (Milk Of Magnesia 30 Ml Oral.Susp) 30 ml PO DAILY PRN PRN Reason: Constipation Magnesium Oxide (Magnesium Oxide 400 Mg Tablet) 400 mg PO DAILY [facility] Omeprazole (Omeprazole 40 Mg Capsule.Dr) 40 mg PO DAILY@0630 [facility] Ondansetron HCl (Ondansetron Hcl 4 Mg/2 Ml Vial) 4 mg IVPUSH ONCE PRN PRN Reason: Nausea and Vomiting Ondansetron HCl (Ondansetron Hcl 4 Mg/2 Ml Vial) 4 mg IVPUSH Q8H PRN PRN Reason: Nausea and Vomiting Oxycodone HCl (Oxycodone Hcl Immed Release 5 Mg Tablet) 5 mg PO ONCE PRN PRN Reason: Pain, Severe (Pain Scale 7-10) Sodium Chloride (0.9 % Sodium Chloride Flush 3 Ml Syringe) 3 ml IVFLUSH QSHIFT [facility] Last Admin: 05/15/23 01:41 Dose: 3 ml Documented By: HANNAH Zolpidem Tartrate (Zolpidem Tartrate 5 Mg Tablet) 5 mg PO BEDTIME [facility] Labs 05/14/23 18:35 05/14/23 18:35 Labs: Laboratory Results - last 24 hr 05/14/23 05/14/23 05/14/23 18:35 18:35 18:35 MCV 99.7 H MCH 32.5 MCHC 32.6 RDW 14.6 Plt Count 387 MPV 9.6 Immature Gran % (Auto) 0.4 Neut % (Auto) 78.7 H Lymph % (Auto) 17.0 L [place] % (Auto) 3.1 Eos % (Auto) 0.5 Baso % (Auto) 0.3 Lymph # (Auto) 2.2 [place] # (Auto) 0.4 Eos # (Auto) 0.1 Baso # (Auto) 0.0 Abs Immat Gran (auto) 0.05 H Absolute Neuts (auto) 10.1 H Absolute Nucleated RBC 0.000 Nucleated RBC % (auto) 0.0 Anion Gap 15 Estim Creat Clear Calc 67.2 Estimated GFR > 60 Random Glucose 129 H Calcium 9.9 Total Bilirubin 0.3 Direct Bilirubin 0.1 AST 26 ALT 24 Alkaline Phosphatase 75 Total Protein 7.5 Albumin 4.3 Urine Color Yellow Urine Appearance Cloudy Urine pH 6.0 Ur Specific Early >= 1.030 H Urine Protein Trace Urine Glucose (UA) Negative Urine Ketones 15 Urine Blood Negative Urine Nitrite Negative Ur Leukocyte Esterase Negative Procedures Date of Service Date of Service: 05/15/23 Progress Note: A&P Assessment and plan (1) Appendicitis: Status: Acute (2) S/P laparoscopic appendectomy: Status: Acute Plan 58 year old female admitted with perforated appendicitis now POD #1 s/p lap appy. Doing well post op, abd exam benign with appropriate post op tenderness, dressings c/d/i. Will advance to solid diet. Encouraged PO analgesics in preparation for discharge. Encouraged OOB/ambulation. Will reassess for possible discharge to home later today with tolerating solid diet and comfortable on PO analgesics. Dc on 7 days levaquin/flagyl. Patient comfortable with plan. Time Spent With Patient Time: Total time managing care of this patient today ____ minutes. Quality Stroke Does the patient have a stroke diagnosis?: No VTE Prior VTE?: No VTE Risk Level:: Surgical - low VTE Device Contraindication: Treatment Not Indicated VTE Drug Contraindication: Treatment Not Indicated
[2023-05-15] MEDS: Omeprazole 40 MG CAPSULE.DR PO (08:18)
[2023-05-15] MEDS: Magnesium Oxide 400 MG TABLET PO (08:18)
[2023-05-15] MEDS: Atorvastatin Calcium 20 MG TABLET PO (08:18)
--- NOTE | 2023-05-15 11:27 | MHC.CM.PN ---
Addendum entered by Wen Guadarrama 05/16/23 11:59: PT WILL DC HOME TODAY WITH NO SERVICES VIA PRIVATE TRANSPORT Original Note: PT REPORTS SHE LIVES ALONE BUT HER FIANCE IS THERE CONTINUOUSLY SHE REPORTS SHE IS INDEPENDENT WITH CARE AND HAS NO SERVICES PT REPORTS SHE HAS A WALKER FROM A PREVIOUS INJURY, HOWEVER SHE DOES NOT USE/NEED IT AT THIS TIME SHE COMPLETED A HCP TODAY NAMING HER FIANCE, JADE ROSS, HER AGENT PCP: YE POLANCO DCP: HOME, LIKELY TODAY, WITH NO SERVICES S/O TO TRANSPORT
--- NOTE | 2023-05-15 13:02 | HO.POSTANES ---
Post Anesthesia Evaluation Post Anesthesia Evaluation Date of Service: 05/15/23 Vital Signs: Vital Signs Temp Pulse Resp BP Pulse Ox O2 Del Method 05/15/23 07:12 98.1 F 101 H 18 136/81 93 Room Air 05/15/23 03:08 98.1 F 99 18 115/68 96 Room Air 05/15/23 01:41 97.6 F 100 18 150/72 H 95 Room Air 05/15/23 01:31 98.1 F 112 H 14 142/80 H 96 Room Air 05/15/23 01:16 114 H 16 145/88 H 96 Room Air 05/15/23 01:11 112 H 14 153/89 H 96 Room Air 05/15/23 01:06 105 H 14 152/91 H 96 Room Air Anesthesia: General Endotracheal-GETA Mental Status: Awake Pain Control: Satisfactory Nausea/Vomiting: None Hydration: Adequate Anesthesia-Related Issues: No Anes. Related Issues
[2023-05-15] MEDS: Acetaminophen 325 MG TABLET 650 MG PO ×2 (13:20→21:43)
[2023-05-15] MEDS: LORazepam 1 MG TABLET PO ×2 (13:20→21:43)
[2023-05-15] MEDS: Zolpidem Tartrate 5 MG TABLET PO (21:43)
[2023-05-16] MEDS: HYDROmorphone HCl 1 MG/ML SYRINGE 0.5 MG IVPUSH ×2 (02:38→07:38)
[2023-05-16 03:32] VITALS: BP 119/65; PULSE 103; RESP 16; TEMP 36.1; O2SAT 93
[2023-05-16] MEDS: cefTRIAXone sodium 1 GM in 0.9 % Sodium Chloride 50 ML IV (06:30)
[2023-05-16] MEDS: Omeprazole 40 MG CAPSULE.DR PO (06:30)
[2023-05-16 07:06] VITALS: BP 140/71; PULSE 100; RESP 18; TEMP 36.6; O2SAT 95
[2023-05-16] MEDS: Dextrose 5 % and 0.9 % NaCl 1,000 ML 100 ML IVCONT (07:38)
[2023-05-16] MEDS: Atorvastatin Calcium 20 MG TABLET PO (07:39)
[2023-05-16] MEDS: Magnesium Oxide 400 MG TABLET PO (07:39)
[2023-05-16] MEDS: Loratadine 10 MG TABLET PO (07:39)
[2023-05-16] MEDS: buPROPion HCl XL 150 MG TAB.ER.24H 450 MG PO (07:39)
--- NOTE | 2023-05-16 11:11 | PM.PNGS ---
Subjective Subjective Date of Service: 05/16/23 Interval history: feels well says she is ready to be discharged good GI function Physical Exam Vital Signs: Vital Signs: Last Vital Signs Temp 97.9 F 05/16/23 07:06 Pulse 100 05/16/23 07:06 Resp 18 05/16/23 07:06 BP 140/71 H 05/16/23 07:06 Pulse Ox 95 05/16/23 07:06 O2 Del Method Room Air 05/16/23 07:06 BMI result Body Mass Index 24.9 Const: General: comfortable and no acute distress Resp: Effort & Inspection: normal respiratory effort Cardio: Rate: regular rate GI: Other: incisions clean and dry Palpation (GI): Soft to palpation and not firm Objective Data Active Medications Acetaminophen (Acetaminophen 325 Mg Tablet) 650 mg PO Q6H PRN PRN Reason: Pain, Mild (Pain Scale 1-3) Last Admin: 05/15/23 21:43 Dose: 650 mg Documented By: MALIKA Al Hydroxide/Mg Hydroxide (Magnesium Hydrox/Alum Hydrox 30 Ml Oral.Susp) 30 ml PO Q4H PRN PRN Reason: Heartburn/Nausea Atorvastatin Calcium (Atorvastatin Calcium 20 Mg Tablet) 20 mg PO DAILY [facility] Last Admin: 05/16/23 07:39 Dose: 20 mg Documented By: DARWIN Bupropion HCl (Bupropion Hcl Xl 150 Mg Tab.Er.24h) 450 mg PO DAILY [facility] Last Admin: 05/16/23 07:39 Dose: 450 mg Documented By: DARWIN Docusate Sodium (Docusate Sodium 100 Mg Capsule) 100 mg PO DAILY PRN PRN Reason: Constipation Fentanyl (Fentanyl Citrate/Pf 100 Mcg/2 Ml Vial) 25 mcg IVPUSH Q5M PRN; Protocol PRN Reason: Pain, Moderate(Pain Scale 4-6) Hydromorphone HCl (Hydromorphone Hcl 1 Mg/Ml Syringe) 0.5 mg IVPUSH Q4H PRN; Protocol PRN Reason: Pain, Severe (Pain Scale 7-10) Last Admin: 05/16/23 07:38 Dose: 0.5 mg Documented By: DARWIN Dextrose/Sodium Chloride (D5ns) 1,000 mls @ 100 mls/hr IVCONT .Q10H [facility] Last Admin: 05/16/23 07:38 Dose: 100 mls/hr Documented By: DARWIN Ceftriaxone Sodium 1 gm/ (Sodium Chloride) 50 mls @ 100 mls/hr IV Q12H [facility] Last Infusion: 05/16/23 07:41 Dose: 0 mls/hr Documented By: DARWIN Loratadine (Loratadine 10 Mg Tablet) 10 mg PO DAILY [facility] Last Admin: 05/16/23 07:39 Dose: 10 mg Documented By: DARWIN Lorazepam (Lorazepam 1 Mg Tablet) 1 mg PO TID PRN PRN Reason: Anxiety Last Admin: 05/15/23 21:43 Dose: 1 mg Documented By: MALIKA Magnesium Hydroxide (Milk Of Magnesia 30 Ml Oral.Susp) 30 ml PO DAILY PRN PRN Reason: Constipation Magnesium Oxide (Magnesium Oxide 400 Mg Tablet) 400 mg PO DAILY [facility] Last Admin: 05/16/23 07:39 Dose: 400 mg Documented By: DARWIN Omeprazole (Omeprazole 40 Mg Capsule.Dr) 40 mg PO DAILY@0630 [facility] Last Admin: 05/16/23 06:30 Dose: 40 mg Documented By: MALIKA Ondansetron HCl (Ondansetron Hcl 4 Mg/2 Ml Vial) 4 mg IVPUSH ONCE PRN PRN Reason: Nausea and Vomiting Ondansetron HCl (Ondansetron Hcl 4 Mg/2 Ml Vial) 4 mg IVPUSH Q8H PRN PRN Reason: Nausea and Vomiting Oxycodone HCl (Oxycodone Hcl Immed Release 5 Mg Tablet) 5 mg PO ONCE PRN PRN Reason: Pain, Severe (Pain Scale 7-10) Sodium Chloride (0.9 % Sodium Chloride Flush 3 Ml Syringe) 3 ml IVFLUSH QSHIFT [facility] Last Admin: 05/16/23 07:42 Dose: Not Given Documented By: DARWIN Non-Admin Reason: IV Running Zolpidem Tartrate (Zolpidem Tartrate 5 Mg Tablet) 5 mg PO BEDTIME [facility] Last Admin: 05/15/23 21:43 Dose: 5 mg Documented By: MALIKA Labs 05/14/23 18:35 05/14/23 18:35 Procedures Date of Service Date of Service: 05/16/23 Progress Note: A&P Assessment and plan (1) S/P laparoscopic appendectomy: Status: Acute Assessment and Plan: doing very well postoperatively good GI function looks well abdomen soft and benign incisions clean and dry okay to DC home follow-up instructions reinforced in the room as well Time Spent With Patient Time: Total time managing care of this patient today ____ minutes. Quality Stroke Does the patient have a stroke diagnosis?: No VTE Prior VTE?: No VTE Risk Level:: Surgical - low VTE Device Contraindication: Treatment Not Indicated VTE Drug Contraindication: Treatment Not Indicated
--- NOTE | 2023-05-18 09:01 | PM.DS ---
DS: Providers Provider Date of Service: 05/14/23 Date of admission: 05/14/23 23:33 Primary care physician: Danny Owen III, MD DS: Diagnosis Discharge Diagnosis (1) S/P laparoscopic appendectomy: Status: Acute DS: Summary Hospital Course Hospital Course: Patient was admitted with a complaint of severe right lower quadrant pain. Workup demonstrated findings consistent with perforated appendicitis. Patient was admitted, placed NPO with IV hydration and IV antibiotics. She underwent general restorative measures and was taken to the operating room on the early childhood lead teacher of 05/15/2023 for uneventful laparoscopic appendectomy. For specific if intraoperative findings, please refer to operative note. Patient's postoperative course has been uneventful. She is currently afebrile stable vital signs. She has time diet. She is having normal bowel habits. Abdomen soft benign. Wounds are clean dry intact. She is ambulating with minimal assistance. Current plan is discharge patient home with follow-up with me in approximately 1 weeks time. See discharge instruction sheet regarding meds and instructions. Time spent discussing smoking cessation with patient: 3 to 10 minutes Time Spent with Patient Time attestation: Total time managing care of this patient today ____ minutes. Discharge coordination time: Less than 30 minutes Quality: Safe Use of Opioids Does Pt have an Active Cancer Diagnosis on the Problem List?: No Quality: Stroke Does the patient have a stroke diagnosis?: No Physical Exam Vital Signs: Vital Signs: Last Vital Signs Temp 97.9 F 05/16/23 07:06 Pulse 100 05/16/23 07:06 Resp 18 05/16/23 07:06 BP 140/71 H 05/16/23 07:06 Pulse Ox 95 05/16/23 07:06 O2 Del Method Room Air 05/16/23 07:06 BMI result Body Mass Index 24.9 GI: Other: Abdomen soft. Wounds clean dry and intact DS: Data Data Completed and Pending Completed studies during hospitalization [Text1]: Procedures Repair Abdominal Wall, Percutaneous Endoscopic Approach (05/14/23) Resection of Appendix, Percutaneous Endoscopic Approach (05/14/23) Pending studies at discharge: Pending at discharge 05/15/23 00:32 Surgical [PTH] Routine Discharge Plan Discharge Anticipated Discharge Date/Time: 05/15/23 15:18 Patient Disposition: Home, Self-Care Discharge Diagnosis: Acute appendicitis Referrals: Danny Owen III, MD [Primary Care Provider] - 1 Week Jasbir Boone MD [Physician] - 1 Week Discharge Medications: New hydrocodone-acetaminophen 5-325 mg tablet 1 tab PO Q4-6H PRN (Reason: pain) Qty: 30 0RF Rx Instructions: Partial Fill upon patient request. levofloxacin 500 mg tablet 500 mg PO DAILY Qty: 7 0RF metronidazole 500 mg tablet 500 mg PO Q8H Qty: 21 0RF Continued omeprazole 40 mg capsule,delayed release(DR/EC) 40 mg PO QAM simvastatin 40 mg tablet 40 mg PO DAILY zolpidem 5 mg tablet 5 mg PO BEDTIME loratadine 10 mg tablet 10 mg PO DAILY cyanocobalamin (vitamin B-12) 1,000 mcg Tablet 1,000 mcg PO DAILY ascorbic acid (vitamin C) 500 mg Tablet 500 mg PO DAILY vitamin E 268 mg (400 unit) Capsule 268 mg PO DAILY magnesium 200 mg Tablet 400 mg PO DAILY biotin 1 tab PO DAILY bupropion HCl 150 mg tablet extended release 24 hr 450 mg PO DAILY PRN (Reason: anxious) lorazepam 1 mg tablet 1 mg PO TID PRN (Reason: Anxiety) diclofenac sodium 1 % gel 1 - 2 g topical TID PRN (Reason: pain) cholecalciferol (vitamin D3) 50 mcg (2,000 unit) tablet 50 mcg PO DAILY Discharge Orders: Discharge Order (Routine); Ordered 05/16/23 Ordered By: Jasbir Boone Diet: Advance to usual diet Activity on Discharge: No heavy lifting Stand Alone Forms: Patient Portal Discharge page Activity Restrictions/Additional Instructions: Apply an ice pack for short intervals (20 minutes on, followed by at least 20 minutes off) for the first 2 days. Do not apply heat. Do not use creams, lotions, or topical antibiotics. These can cause infection or allergic reaction. Ok to shower 48 hours after your surgery. Remove dressings 2 days after your surgery and replace as needed. You have steri strips (small white cloth strips) covering your incision- these will fall off ~1 week. Follow up in office with Dr. Boone in 1 week. ([phone]) No heavy lifting (>10lbs) or strenuous activity! Call Your Doctor If: -Your temperature exceeds 101.5? F -You experience excessive pain or swelling -You have an unexpected reaction to medication -You have excessive bleeding -You experience continued vomiting/nausea -Your incision begins to separate -Your incision shows signs of infection such as increased redness, swelling, excessive pain, drainage (light blood or clear fluid is normal) or heat Care Plan Goals: Return to baseline Health Concerns: None Plan of Treatment: Convalesce Assessment: Stable Discharge Date/Time: 05/16/23 11:21
== END 2023-05-16 11:21 | disposition home or self-care (01) | DRG 227 ==
LOC: HO.ED 23:16 → HO.EDOVER 23:43 → HO.S3 23:44
PROVIDERS: Physician Assistant Medical; Admitting Provider Surgery; Emergency Provider Emergency Medicine Emergency Medical Services; PCP Internal Medicine; Visit Provider Surgery
PROC: 0DTJ4ZZ Resection of Appendix, Percutaneous Endoscopic Approach (ICD-10-PCS; CPT 44970; principal; 2023-05-14 23:30)
DX: K35.32 Acute appendicitis with perforation, localized peritonitis, and gangrene, without abscess (principal); K42.0 Umbilical hernia with obstruction, without gangrene; Z87.891 Personal history of nicotine dependence
CPT/HCPCS: 44970; 36415; 74176; 80048; 80076; 81003; 84484; 85025; 88304; 93005; 99285; J0131; J0696; J1100; J1170; J2250; J2371; J2405; J2795; J3010

== ENCOUNTER → 2023-05-14 18:00 | Outpatient (BNV) | payer OTHER, SELFPAY | PROVIDERS: Admitting Provider Surgery; Emergency Provider Emergency Medicine Emergency Medical Services; PCP Internal Medicine; Visit Provider Internal Medicine Cardiovascular Disease | DX: R94.31 Abnormal electrocardiogram [ECG] [EKG] (principal) | CPT/HCPCS: 93010 ==

== ENCOUNTER → 2023-05-14 19:25 | Outpatient (BNV) | payer OTHER, SELFPAY | PROVIDERS: Emergency Provider Emergency Medicine Emergency Medical Services; PCP Internal Medicine; Visit Provider Surgery | DX: Z90.49 Acquired absence of other specified parts of digestive tract (principal) | CPT/HCPCS: 44970; 99024; 99233; 99285 ==

== ENCOUNTER 2023-05-21 11:39 | Outpatient (AMB) | payer OTHER, SELFPAY ==
[2023-05-21 11:43] VITALS: BP 138/86; PULSE 97
--- NOTE | 2023-05-21 11:43 | MHC.OFFVIS ---
Intake Vital Signs 05/21/23 11:43 Weight 149 lb BP 138/86 Blood Pressure Location Rt brachial Position Sitting Pulse 97 Intake Visit Reasons: s/p lap appy, incarcerated umbilical hernia Intake Note: Patient here s/p lap appy, and umbilical hernia. Reports incisions healing well. Denies bleeding, tenderness or itch. Still taking rx pain meds as needed. Accompanied by: Spouse Allergies No Known Allergies Allergy (Verified 05/21/23 11:44) HPI HPI Comments History of Present Illness Details Patient presents with her for follow-up for follow-up status post perforated appendicitis. She is doing well. She is tolerating her diet. Having normal bowel habits. She is increasing her activity level. Patient has minimal incisional discomfort. [facility] Medical History Overweight (BMI 25.0-29.9) Umbilical hernia (05/15/23) Surgical History History of ear surgery Hx of myomectomy Family History Father Heart disease Mother Lung cancer Social History Household Members: None Housing: Condominium Do you presently have visiting nurse or other home services: No Alcohol intake: current Alcohol intake frequency: does not drink Patient Tobacco Use Status: Former Tobacco user Tobacco use type: Cigarette service: No Physical Exam Vital Signs: Last Vital Signs Pulse 97 05/21/23 11:43 BP 138/86 05/21/23 11:43 GI Other: Abdomen soft. All wounds clean dry and intact. Assessment & Plan Assessment & Plan (1) S/P laparoscopic appendectomy: Code(s): Z90.49 - Acquired absence of other specified parts of digestive tract Plan Patient has been given local instructions, and will follow-up p.r.n. Coding Level of Care Code Global (76519) Diagnoses S/P laparoscopic appendectomy Z90.49
== END 2023-05-21 11:59 | disposition home or self-care (01) ==
PROVIDERS: PCP Internal Medicine; Visit Provider Surgery
DX: Z90.49 Acquired absence of other specified parts of digestive tract (principal)
CPT/HCPCS: 99024

== ENCOUNTER → 2023-05-21 11:39 | Outpatient (BNVA) | payer OTHER, SELFPAY | PROVIDERS: PCP Internal Medicine; Visit Provider Surgery ==

== ENCOUNTER 2023-10-26 13:13 | Outpatient (AMB) | payer OTHER, SELFPAY ==
--- NOTE | 2023-10-26 13:43 | AM.OFFWIN_ITS ---
Intake Vital Signs 10/26/23 13:44 Height 5 ft 4 in Weight 161 lb 4 oz BMI 27.7 BP 136/74 Blood Pressure Location Lt brachial Position Sitting Pulse 74 Pulse Source Pulse Oximeter Temp 97.9 F Temp Source Temporal Artery Scan Pulse Oximetry (%) 97 Intake Visit Reasons: EP Lft Thumb hangnail Intake Note: pt is here for c.o left thumb hangnail, patient states she bite it off a few weeks ago and it has not healed. Patient Tobacco Use Status: Former Tobacco user Allergies No Known Allergies Allergy (Verified 10/26/23 14:34) Medication List - Last Reconciled 10/26/23 by Jarvis Osborne MD ascorbic acid (vitamin C) 500 mg PO DAILY [biotin 1 tab PO DAILY] fluoxetine 20 mg PO DAILY lorazepam 1 mg PO TID PRN magnesium 400 mg PO DAILY omeprazole 40 mg PO QAM simvastatin 40 mg PO DAILY vitamin E 268 mg PO DAILY zolpidem 5 mg PO BEDTIME Do you need a note to return to daycare/school/sports/work: Yes HPI EP Lft Thumb hangnail HPI Details 58-year-old female presents to the [facility] for a sick visit. Patient has a hang nail on the left thumb. It has gotten painful and the swelling around the nail is increasing in size. [facility] Medical History Overweight (BMI 25.0-29.9) Umbilical hernia (05/15/23) Surgical History History of ear surgery Hx of myomectomy Family History Father Heart disease Mother Lung cancer Social History Household Members: None Housing: Condominium Do you presently have visiting nurse or other home services: No Alcohol intake: current Alcohol intake frequency: does not drink Patient Tobacco Use Status: Former Tobacco user Tobacco use type: Cigarette service: No Physical Exam Vital Signs: Last Vital Signs Temp 97.9 F 10/26/23 13:44 Pulse 74 10/26/23 13:44 BP 136/74 10/26/23 13:44 Pulse Ox 97 10/26/23 13:44 BMI result Body Mass Index 27.7 Extrem Other: Left thumb: Erythema around the nail. Tender to touch. Assessment & Plan Assessment & Plan (1) Paronychia of left thumb: Code(s): L03.012 - Cellulitis of left finger Plan: Keflex and meloxicam called in. If symptoms do not improve to follow-up here. Coding Level of Care Code Est Pt Level 3 (18800) Diagnoses Paronychia of left thumb L03.012
[2023-10-26 13:44] VITALS: BP 136/74; PULSE 74; TEMP 36.6; O2SAT 97; BMI 27.7
== END 2023-10-26 14:42 | disposition home or self-care (01) ==
PROVIDERS: PCP Internal Medicine; Visit Provider Internal Medicine
DX: L03.012 Cellulitis of left finger (principal)
CPT/HCPCS: 99213

== ENCOUNTER 2023-12-31 11:42 | Outpatient (REF) | payer OTHER, SELFPAY ==
--- NOTE | ~2023-12-31 | XR_ITS ---
EXAMINATION: XR SACROILIAC JOINTS CLINICAL INFORMATION: Stiffness COMPARISON: None available. TECHNIQUE: 3 views of the sacroiliac joints FINDINGS: Bones and soft tissues are normal. No fracture. Alignment is anatomic. Sacroiliac joint spaces are well-maintained without erosions or surrounding sclerosis. There is question of mild bony bridging of the inferior aspect of the left sacroiliac joint. XR/XR sacroiliac joint min 3V IMPRESSION: 1. No evidence of sacroiliitis. 2. Question of mild bony bridging of the inferior aspect of the left sacroiliac joint.
--- NOTE | ~2023-12-31 | XR_ITS ---
EXAMINATION: XR HAND, RIGHT CLINICAL INFORMATION: Carpal tunnel COMPARISON: Same-day left hand TECHNIQUE: PA, lateral, and oblique views of the right hand. FINDINGS: The bones are intact. No fracture. Alignment is anatomic. Joint spaces are maintained. No erosions or soft tissue calcifications. XR/XR hand RT 2V IMPRESSION: No bony abnormality.
--- NOTE | ~2023-12-31 | XR_ITS ---
EXAMINATION: XR HAND, LEFT CLINICAL INFORMATION: Carpal tunnel COMPARISON: Same-day right hand TECHNIQUE: PA, lateral, and oblique views of the left hand. FINDINGS: The bones are intact.. No fracture. Alignment is anatomic. Joint spaces are maintained. No erosions or soft tissue calcifications. XR/XR hand LT 2V IMPRESSION: No bony abnormality.
[2023-12-31 12:52] LABS: Rheumatoid Factor < 13.0 IU/mL (<15.0)
[2023-12-31 13:23] LABS: Erythrocyte Sedimentation Rate 23 MM/HR (0-20)
[2024-01-01 13:13] LABS: Lyme Abs Screen <0.90 index
[2024-01-01 16:38] LABS: Anti Nuclear Antibody Screen NEGATIVE (NEGATIVE)
== END 2023-12-31 11:43 | disposition home or self-care (01) ==
LOC: HO.XRAY 11:42
PROVIDERS: PCP Internal Medicine; Visit Provider Psychiatry & Neurology Neurology
DX: M25.60 Stiffness of unspecified joint, not elsewhere classified (principal); G56.00 Carpal tunnel syndrome, unspecified upper limb
CPT/HCPCS: 36415; 72202; 73120; 82550; 85652; 86038; 86431; 86617; 86618

== ENCOUNTER 2024-03-30 15:23 | Outpatient (AMB) | payer OTHER, SELFPAY ==
--- NOTE | 2024-03-30 15:24 | A.OFFVIS_ITS ---
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 Patient reports she started having a tingling sensation in her hands, followed by locking and catching in her right thumb. She has limited ROM in her left thumb. Denies injury. Allergies No Known Allergies Allergy (Verified 03/30/24 16:00) HPI HPI PROPERTY COORDINATOR- B/L hand pain: Details: Patient is a 59-year-old female who presents for evaluation of locking, catching, and pain in bilateral thumbs, as well as numbness and tingling in her bilateral hands. Patient reports that she began to notice that her left thumb was locking and catching ?a while ago?, and that this has progressed to the point where she is practically unable to actively flex at the IP joint of the left thumb. She also reports that, a little while later, she noticed clicking and catching whenever she tried to flex her right thumb. She reports that her right thumb now clicks twice whenever she attempts to actively flex it. Patient also reports that, approximately 6 months ago, she began to notice numbness and tingling in her bilateral hands. Dr. Barreto ordered a nerve conduction study, which revealed bilateral mild to moderate carpal tunnel. However the patient noticed that approximately 2 months ago these symptoms resolved spontaneously in all digits but her bilateral thumbs, and she reports that symptoms that she has been experiencing in her thumbs are diminished from when they were first reported. Patient states that symptoms occur sporadically. [facility] Medical History Overweight (BMI 25.0-29.9) Umbilical hernia (05/15/23) Surgical History Hx of myomectomy History of ear surgery Family History Father Heart disease Mother Lung cancer Social History (Updated 03/30/24 @ 15:33 by MARSHA Ledesma) Household Members: None Housing: Condominium Do you presently have visiting nurse or other home services: No Alcohol intake: current Alcohol intake frequency: does not drink Patient Tobacco Use Status: Former Tobacco user Tobacco use type: Cigarette service: No Current occupation: left hand dominant Review of Systems Const All systems reviewed & are unremarkable except as noted in HPI and below Physical Exam Const Other: Patient is alert, oriented, cooperative, and in no acute distress HEENT Head: Yes normocephalic and Yes atraumatic Resp Effort & Inspection: normal respiratory effort and able to speak in complete sentences Cardio Jugular venous distension: no JVD Neuro General: gait normal Cognition (Neuro): normal cognition Extrem Other: Patient is alert, oriented, and in no acute distress. Neuro: Median, ulnar, radial nerves motor and sensory intact and sensation is normal to the tips of all digits at this time Vascular: Cap refill brisk ROM: Patient is unable to actively flex at the IP joint of the left thumb When the IP joint of the left thumb was passively flexed, catching and locking is noted, along with large amounts of pain Locking must be released passively, as patient is unable to actively extend the thumb Patient can make a fist and extend all other digits Visible and palpable locking and catching of the right thumb Tender over the A1 goran of the bilateral thumbs Skin: No lacerations or abrasions. General: No ecchymosis, erythema, or evidence of infection. Psych: Appears grossly normal Affect normal Attitude cooperative Psych Appearance: grossly normal Mental Status: mental status grossly normal Office Procedures Injection-Therapetic Trigger Single Point: 36438-Hpfihjb point injection, 1 or 2 Right trigger thumb injection Results Reviewed Results Reviewed: Nerve conduction study from 02/02/[address] Choudhary Impression: Mild to moderate bilateral carpal tunnel syndrome. Normal EMG of the right C5- T1 innervated muscles Assessment & Plan Assessment & Plan (1) Trigger thumb of both hands: Code(s): M65.311 - Trigger thumb, right thumb; M65.312 - Trigger thumb, left thumb Category: Medical (2) Carpal tunnel syndrome on both sides: Code(s): G56.03 - Carpal tunnel syndrome, bilateral upper limbs Category: Medical Plan 1. Trigger thumb, left Patient is unable to actively flex at the left thumb IP joint, and when passively flexed, thumb catches and patient is unable to actively extend. Catching able to be passively released, and thumb is able to be brought into passive extension, but this causes the patient discomfort Due to severity of trigger thumb symptoms, and after consultation with Dr. Dang, we felt that this patient would benefit most from surgical trigger thumb release I educated the patient about the condition. I discussed both operative and nonoperative treatment options. The patient would like to proceed with surgery. The risks and benefits of operative treatment were discussed with the patient and the patient wishes to proceed with surgery. These risks include, but are not limited to, risk of damage to blood vessels, nerves, tendons, infection, recurrence, incomplete relief of preoperative symptoms, persistent pain, possible need for further surgery, and the risks associated with regional blocks and/or anesthesia. Plan is to take the patient to the operating room at some point in the next few weeks for the following procedures: 1. Left trigger thumb release All of the preoperative paperwork including the consent was discussed today. All of the patient's questions were answered in the clinic today. The patient understands that they will be in contact with our medical or surgical instrument maker to discuss scheduling their procedure. Patient has no other particular concerns at this time. Patient denies diabetes, blood thinners, asthma, heart issues, lung issues, kidney issues, or current smoking. 2. Trigger thumb, right Noted locking and catching whenever the patient actively flexes and extends the thumb Patient does not report any pain in the thumb at this time. Patient would like to proceed with injection, to see if this brings relief without the need for surgery The risks and benefits of a steroid injection including but not limited to risk of damage to blood vessels, nerves, tendons, infection, skin bleaching, failure to improve symptoms, increased pain, and possible need for further injections or other intervention were discussed with the patient and the patient wishes to proceed with the steroid injection. Once consent was obtained, I sterilely prepped the area over the A1 goran of the flexor tendon sheath of the right thumb. I then injected the flexor tendon sheath with a combination of 1 mL of dexamethasone (4mg/ml), and 1% lidocaine. The patient tolerated the procedure well with no complications. If the patient continues to have locking and catching 4-6 weeks following this injection, they may call to schedule appointment to discuss alternative treatment options Follow-up prn and at postop evaluations following left trigger thumb release. 3. Carpal tunnel syndrome, bilateral Symptoms are intermittent, but not daily Patient reports that, while she began experiencing symptoms 6 months ago, the symptoms are vastly improved over the last 2 months, and she is only experiencing symptoms in her thumbs At this time, after consultation with Dr. Dang, we decided that surgical intervention for carpal tunnel syndrome was on indicated in this patient at this time. Patient educated about carpal tunnel, and advised to follow up with us with worsening symptoms, and also advised that we can discuss this at follow ups for trigger thumbs Patient is amenable to this, and states that she would like to see how treatment for her bilateral trigger thumbs goes before she pursues treatment for carpal tunnel. Follow-up p.r.n. for worsening of symptoms, or for any other acute concerns. Coding Level of Care Code New Pt Level 4 (13720) Diagnoses Trigger thumb of both hands M65.311; M65.312 Carpal tunnel syndrome on both sides G56.03 CPT Codes Details - Trigger Single Point: 52587-[id number] point injection, 1 or 2 ([id number])
== END 2024-03-30 16:06 | disposition home or self-care (01) ==
LOC: HO.HOS 15:23
PROVIDERS: PCP Internal Medicine
DX: M65.311 Trigger thumb, right thumb (principal); M65.312 Trigger thumb, left thumb; G56.03 Carpal tunnel syndrome, bilateral upper limbs
CPT/HCPCS: 20550; 99204

== ENCOUNTER → 2024-03-30 15:23 | Outpatient (BNVA) | payer OTHER, SELFPAY | PROVIDERS: PCP Internal Medicine | DX: M65.311 Trigger thumb, right thumb (principal); M65.312 Trigger thumb, left thumb; G56.03 Carpal tunnel syndrome, bilateral upper limbs | CPT/HCPCS: 20550; J1100 ==